=== PATIENT | male | born 1950 | race Caucasian/White ===

== ENCOUNTER 2018-08-14 06:59 | Day surgery (SDC) | payer BC, MEDICARE ==
[~2018-08-14 06:59] MED LIST: CEFAZOLIN IVPB ONE; CELECOXIB 100 MG CAPSULE PO ONE; FAMOTIDINE 20MG TABLET PO ONE; MECLIZINE 25 MG TABLET PO ONE; METOCLOPRAMIDE 10 MG TABLET PO ONE; VANCOMYCIN HCL 1,000 MG in DEXTROSE 5 % IN WATER 250 ML IVPB ONE
[2018-08-14] MEDS ORDERED: DEXAMETHASONE 4 MG/ML 1ML VIAL IVP ONE (07:00)
[2018-08-14] MEDS ORDERED: PROPOFOL 10 MG/ML VIAL IV ONE (07:00)
[2018-08-14] MEDS ORDERED: TRANEXAMIC ACID 1,000 MG/10 ML ML IV ONE (07:00)
[2018-08-14] MEDS ORDERED: ROPIVACAINE HCL (NAROPIN) /PF 5MG/ML 20ML VIAL IV ONE (07:00)
[2018-08-14] MEDS ORDERED: KETAMINE HCL 100MG/1ML VIAL INJ ONE (07:00)
[2018-08-14] MEDS ORDERED: MIDAZOLAM HCL 2MG/2ML VIAL IV ONE (07:00)
[2018-08-14] MEDS ORDERED: RINGERS SOLUTION,LACTATED 1,000 ML IV ONE (07:40)
[2018-08-14 07:50] LABS: ABO GROUP A; ANTIBODY SCREEN NEGATIVE (NEGATIVE); RH TYPE POSITIVE
[2018-08-14] MEDS ORDERED: BUPIVACAINE 0.5% W/EPI MPF 30 ML VIAL SQ ONE (09:46)
[2018-08-14] MEDS ORDERED: RINGERS SOLUTION,LACTATED 250 ML IV ONE (10:51)
[2018-08-14] MEDS ORDERED: ACETAMINOPHEN 325 MG TAB PO PRN (11:13)
[2018-08-14] MEDS ORDERED: AL HYDROX/MAG HYDROX 30ML UD PO PRN (11:13)
[2018-08-14] MEDS ORDERED: ACETAMINOPHEN W/ CODEINE 300MG/60MG TABLET PO PRN ×2 (11:13)
[2018-08-14] MEDS ORDERED: KETOROLAC 30 MG/ML VIAL IVP PRN ×2 (11:13)
[2018-08-14] MEDS ORDERED: NALOXONE 0.4 MG/1 ML VIAL IVP PRN (11:13)
[2018-08-14] MEDS ORDERED: HYDROCODONE/APAP 10/325 TABLET PO PRN (11:13)
[2018-08-14] MEDS ORDERED: MAGNESIUM HYDROXIDE 30 ML UDC PO PRN (11:13)
[2018-08-14] MEDS ORDERED: ONDANSETRON HCL IV 4 MG/2 ML VIAL IVP PRN (11:13)
[2018-08-14] MEDS ORDERED: ZOLPIDEM TARTRATE 5 MG TABLET PO PRN (11:13)
[2018-08-14] MEDS ORDERED: TRAMADOL HCL 50 MG TABLET PO PRN (11:13)
[2018-08-14] MEDS ORDERED: BISACODYL 10 MG SUPP RC PRN (11:13)
[2018-08-14] MEDS ORDERED: HYDROMORPHONE HCL 2 MG/ML VIAL IM PRN (11:13)
[2018-08-14] MEDS ORDERED: DIPHENHYDRAMINE HCL 25 MG CAPSULE PO PRN (11:13)
[2018-08-14] MEDS: POTASSIUM CHLORIDE/D5-0.9%NACL 20 MEQ/1,000 ML BAG IV SCH ×2 (12:08→20:57)
--- NOTE | 2018-08-14 13:00 | Operative Note ---
DATE OF SURGERY: 08/14/2018 PREOPERATIVE DIAGNOSIS: End-stage arthrosis of the left knee. POSTOPERATIVE DIAGNOSIS: End-stage arthrosis of the left knee. OPERATION: Cemented left total knee arthroplasty using [employer] II components with a size 7 Oxinium femur, a size 6 stem tibia baseplate, a 9 mm lipped tibial insert, and a 35 mm all plastic patella. STAFF SURGEON: Denzel Luo MD ANESTHESIA: Spinal. PREPARATION: Chloraprep. INDIVIDUAL CONSIDERATIONS: None. PROCEDURE: The patient was taken to the operating room, placed supine on the operating room table. He had a successful induction of a spinal anesthetic. The left lower extremity was prepped and draped in the usual fashion. The limb was elevated and tourniquet was inflated to 250 mmHg. The patient had a midline approach to the knee. Sharp dissection carried down through skin and subcutaneous tissue. Small veins were coagulated with a Bovie. A medial arthrotomy was performed. The patella was everted and the knee was flexed. The patient had exposed bone at all 3 compartments with large osteophytes. ACL was sacrificed and provisional anterior meniscectomies were performed. The capsule was released from the medial proximal tibia. The initial femoral pilot plant technician hole was then made freehand. The intramedullary femoral cutting jig was placed. It was cut in 7.0 degrees of valgus and adjusted for rotation and secured with pins for a 10 mm resection. The initial transverse cut was then made. The skin guide was then placed in the anterior and posterior pilot plant technician holes. It was found that a size 7 would be appropriate. The anterior and posterior cuts followed by chamfer cuts were made. Osteophytes removed, and a size 7 trial was placed and found to fit well. The tibia was brought forward, and the remainder of the meniscal remnants removed with a Bovie. The extraarticular tibial cutting jig was placed. It was cut in neutral with a 3-degree AP slope. It was set for a 9 mm resection keyed off the high lateral side and secured with pins. When cutting the tibia, care was taken to preserve the PCL insertion on the tibia. Large osteophytes were removed, and I could fit a size 6. It was adjusted for rotation and secured with pins. With a 9 mm trial and femoral trial, there was excellent motion and stability, ligamentous balance, rotation alignment, patellofemoral tracking were normal. No lateral release was required. Femoral pilot plant technician holes were impacted. Tri-flange tibial stamp was impacted, and these trial components were removed. The patient had a thick patella and roughly 9 mm of bone was removed freehand. I was easily able to fit a 35 patella. The 3 pilot plant technician holes were drilled. The knee was then thoroughly irrigated out with pulsatile Betadine and saline to remove any visual or palpable debris. The tourniquet was let down briefly to get bleeders posteriorly and then placed back up again. Again thorough irrigation. Bony surfaces were then dried. A size 6 stem tibia baseplate was cemented into place followed by impaction of the 9 mm lipped highly crosslinked tibial insert followed by cementing in the size 7 Oxinium femur followed by cementing in the 35 mm patella. The implant surfaces were compressed, excess cement was removed. After the cement had set, there was excellent motion and stability, ligamentous balance, rotation alignment, and patellofemoral tracking were normal. No lateral release was required. Tourniquet was let down. Hemostasis was obtained with a Bovie. The capsule, periosteum, and subcu were infiltrated with 30 mL of 0.5% Marcaine with epinephrine. The capsule was then closed with a running #2 quill, subcu was closed in layers with running 0 quill, skin was closed with bar. The patient did receive 1 g of tranexamic acid preoperatively. Then 1 g of tranexamic acid was mixed with 30 mL of saline and injected into the knee through a sterile 18-gauge needle, and a sterile bulky compressive dressing was applied. The patient tolerated the procedure well. Needle and sponge counts were correct. Estimated blood loss was minimal, and he was taken back to recovery in good condition. There were no complications. SARAH
[2018-08-14] MEDS: HYDROCODONE/APAP 10/325 TABLET PO PRN ×3 (13:11→20:56)
[2018-08-14] MEDS ORDERED: PNEUM 23-VAL ADULT IM ONE (13:22)
--- NOTE | 2018-08-14 15:18 | Rehab Evaluation ---
Patient Information - Patient Information Diagnosis: L knee OA Ordered Treatment: PT Evaluate and Treat Status: Initial Evaluation Surgery: Yes (L TKA) Date of Surgery: 08/14/18 Past Medical/Surgical Hx: PAST MEDICAL/SURGICAL HISTORY Past Surgical History RIGHT KNEE SCOPES SKIN GRAFT RIGHT SIDE CHEST LEFT LITTLE FINGER AMPUTATION CSCOPES PMH - Respiratory Hx Respiratory Disorders No PMH - Cardiovascular Hx Cardiovascular Disorders Yes Hx Edema Yes: OCCASSIONALLY Hx Hypertension Yes: GOOD CONTROL ON MEDS Hx Heart Murmur Yes: A KID Exercise Tolerance Good PMH - Neuro Hx Neurological Disorders No PMH - GI Hx Gastrointestinal Disorders Yes PMH - Hx Genitourinary Disorders No PMH - Endocrine Hx Endocrine Disorders Yes Hx Diabetes Yes: DX'D 10 YRS AGO Hx of NIDDM Yes: ON METFORMIN Comment: BLOOD SUGARS 150-160 A1C 7.2 PMH - Musculoskeletal Hx Musculoskeletal Disorders Yes Hx Arthritis Yes: KNEES PMH - Psych Hx Psychiatric Problems No PMH - Hematology/Oncology Hx Hematology/Oncology No Disorders Premorbid Status: Detail (The patient was independent with all mobility prior to surgery.) Social History: Detail (The harmonyn lives with spouse in mobile home with 2 steps at the enterance and 2 handrails. The bathroom is equipped with a tub/ shower combination, standard height toilet and no grab bars. The patient has a shower bench and walker with swivel wheels.) Precautions: [place], Fall, Other (WBAT on the L LE.) - Time With Patient Total Time Spent With Patient (Min): 30 Treatment Procedures: Detail (Initial Evaluation, gait training) Subjective Information - Subjective Information Per Patient (The patient had no complaints of pain.) Objective Data - Mental Status Patient Orientation: Oriented x3 - Visual Perception Appears within normal limits for therapeutic activities - ROM Not within normal limits (The patient's L LE knee AROM was limited s/p surgery. All other AROM was WNL.) - Strength/Tone Not within normal limits (The patient's L LE strength was functional ie: patient was able to complete a SLR. The patient's R LE strength was functional.) - Bed Mobility Independent (The patient was independent with supine to and from sit transfer.) - Transfers Independent (The patient was independent with sit to and from stand transfer.) - Balance Balance Sitting: Good Balance Standing: Good - Gait Detail (The patient ambulated with front wheeled walker a distance of 140 feet x 1 WBAT on the L LE with assist of 1 to handle equipment only.) Therapy Assessment - Therapy Assessment Detail (The patient was independent with bed mobility, transfers and ambulation. Feel the patient will progress well with mobility.) Problem List - Problem List Physical Therapy Problem List: Detail (1) Decreased L knee AROM and strenght as to be expected following surgery) Goals - Goals Physical Therapy Goals: 1) The patient will be independent with TKA HEP. 2) The patient will ambulate on stairs with supervision for safety using proper technique. Prognosis - Prognosis Good Plan - Plan Physical Therapy Plan: PT 1-2 sessions for gait training on stairs and instruction in HEP.
--- NOTE | 2018-08-14 15:18 | Rehab Evaluation ---
Patient Information - Patient Information Diagnosis: osteoarthritis L knee Ordered Treatment: OT Evaluate and Treat Status: Initial Evaluation Surgery: Yes (L TKA) Date of Surgery: 08/14/18 Past Medical/Surgical Hx: PAST MEDICAL/SURGICAL HISTORY Past Surgical History RIGHT KNEE SCOPES SKIN GRAFT RIGHT SIDE CHEST LEFT LITTLE FINGER AMPUTATION CSCOPES PMH - Respiratory Hx Respiratory Disorders No PMH - Cardiovascular Hx Cardiovascular Disorders Yes Hx Edema Yes: OCCASSIONALLY Hx Hypertension Yes: GOOD CONTROL ON MEDS Hx Heart Murmur Yes: A KID Exercise Tolerance Good PMH - Neuro Hx Neurological Disorders No PMH - GI Hx Gastrointestinal Disorders Yes PMH - Hx Genitourinary Disorders No PMH - Endocrine Hx Endocrine Disorders Yes Hx Diabetes Yes: DX'D 10 YRS AGO Hx of NIDDM Yes: ON METFORMIN Comment: BLOOD SUGARS 150-160 A1C 7.2 PMH - Musculoskeletal Hx Musculoskeletal Disorders Yes Hx Arthritis Yes: KNEES PMH - Psych Hx Psychiatric Problems No PMH - Hematology/Oncology Hx Hematology/Oncology No Disorders Premorbid Status: Detail (Pt is a 68 y.o. male who was indep. all I/ADLs prior to admit, driving and working. He does have a sock aide which he uses daily. He lives with his in a mobile home with 2 THEO and bilat HR. There is a tub/ shower combination with a shower chair in the bathroom. He has a FWW.) Precautions: [place], Fall, Other (WBAT L LE) - Time With Patient Total Time Spent With Patient (Min): 47 (1 eval) Treatment Procedures: Detail (OT eval: low complexity) Subjective Information - Subjective Information Per Patient (Pt agreeable to OT eval. Spouse present.) Objective Data - Pain Pain Present: No - Mental Status Patient Orientation: Oriented x3 - Visual Perception Appears within normal limits for therapeutic activities - ROM Within normal limits - Strength/Tone Within normal limits - Coordination Appears within normal limits for therapeutic activities - Bed Mobility Independent (supine > EOB) - Transfers Independent (SBA with sit >< stand from low surfaces with FWW.) - Balance Balance Sitting: Good Balance Standing: Good - Sensation Intact - Gait Detail (Functional mobility within bedroom with FWW and supervision.) - ADL's/IADL's Detail (OT educ. Pt on adaptive tech. for LB dressing, Pt demos mod. indep. to don/doff underwear, pants, shoes, able to doff socks and reports using a sock aide daily at baseline. OT educ. Pt on mod. techs. for kitchen and bathroom safety at home, Pt verbalizes understanding.) Therapy Assessment - Therapy Assessment Detail (Pt demos safety and mod. indep. with LB dressing, verbalizes safe tech. for safety with home tasks.) Problem List - Problem List Occupational Therapy Problem List: Detail (No inpatient OT needs identified.) Goals - Goals Occupational Therapy Goals: No further OT inpatient needs/goals identified. DC inpatient OT services. Prognosis - Prognosis Good Plan - Plan Occupational Therapy Plan: DC inpatient OT services. Rec. DC home with spouse assist as needed upon medical stability.
[2018-08-14] MEDS: CEFAZOLIN 1 Gram 1 GM/50 ML BAG IVPB SCH ×2 (17:03→17:39)
[2018-08-14] MEDS: DOCUSATE SODIUM 100 MG CAPSULE PO SCH (21:21)
[2018-08-14] MEDS: METFORMIN 500 MG TABLET PO SCH (21:21)
[2018-08-15] MEDS: CEFAZOLIN 1 Gram 1 GM/50 ML BAG IVPB SCH ×4 (01:13→10:30)
[2018-08-15] MEDS: POTASSIUM CHLORIDE/D5-0.9%NACL 20 MEQ/1,000 ML BAG IV SCH (06:12)
[2018-08-15 06:38] LABS: HEMATOCRIT 39.5 % (42.0-52.0); HEMOGLOBIN 12.9 gm/dl (14.0-18.0)
[2018-08-15 06:45] LABS: BLOOD UREA NITROGEN 14 mg/dL (8-23); CREATININE 0.8 mg/dL (0.7-1.2); EST GLOMERULAR FILTRATION RATE > 60 mL/min; GLUCOSE,RANDOM 170 mg/dL (74-109)
[2018-08-15] MEDS: HYDROCODONE/APAP 10/325 TABLET PO PRN (07:01)
[2018-08-15] MEDS ORDERED: METOPROLOL SUCC 50 MG TABLET PO SCH (10:00)
[2018-08-15] MEDS ORDERED: LISINOPRIL 20 MG TABLET PO SCH (10:00)
[2018-08-15] MEDS ORDERED: POTASSIUM CHLORIDE 20 MEQ TABLET PO SCH (10:00)
[2018-08-15] MEDS ORDERED: AMLODIPINE BESYLATE 5MG TAB PO SCH (10:00)
[2018-08-15] MEDS ORDERED: RIVAROXABAN 10 MG TABLET PO SCH (10:00)
[2018-08-15] MEDS ORDERED: FERROUS SULFATE 325 MG TAB PO SCH (10:00)
[2018-08-15] MEDS ORDERED: CEFAZOLIN 1G VIAL IVP ONE (10:00)
[2018-08-15] MEDS ORDERED: FUROSEMIDE 40 MG TABLET PO SCH (10:00)
[2018-08-15] MEDS ORDERED: ATORVASTATIN 20 MG TABLET PO SCH (10:00)
[2018-08-15] MEDS ORDERED: ASPIRIN 81 MG TABEC PO SCH (10:00)
[2018-08-15] MEDS: METFORMIN 500 MG TABLET PO SCH (10:29)
[2018-08-15] MEDS: DOCUSATE SODIUM 100 MG CAPSULE PO SCH (10:29)
--- NOTE | 2018-08-15 11:15 | Physical Therapy Tx Note ---
Physical Therapy Tx Note - Treatment Note Tolerated: Good Total Time Spent With Patient: 20 Physical Therapy Tx Note: Detail (Patient was seated in chair upon SPRING TIER arrival. Patient states feeling good today. Patient transferred sit to and from stand independently. Patient donned shoes with minimal assistance from . Patient ambulated 346 feet with wheeled walker SBA x1. Patient ascended and descended 3 steps CGA x1. Patient transferred sit to supine independently. Patient scooted up in bed independently. Patient performed the following exercises x10 reps each: ankle pumps, quad sets, glut squeezes, SLR, heel slides , and hamstring sets. Patient tolerated treatment well. Patient was left reclined in bed with call light within reach. Patient discharged from inpatient PT at this time, due to all goals met.) Physical Therapy Problem List: Detail (1) Decreased L knee AROM and strenght as to be expected following surgery) Physical Therapy Goals: 1) The patient will be independent with TKA HEP. 2) The patient will ambulate on stairs with supervision for safety using proper technique. Prognosis: Good Physical Therapy Plan: Patient discharged from inpatient PT at this time, as all goals are met.
== END 2018-08-15 11:30 | disposition home health service (06) ==
LOC: SUR 06:59 → MEDSURG 11:32 → SUR 08-15 11:30
PROVIDERS: ATTEND Orthopaedic Surgery
DX: M17.11 Unilateral primary osteoarthritis, right knee (principal); I10 Essential (primary) hypertension; E78.00 Pure hypercholesterolemia, unspecified; R60.9 Edema, unspecified; E11.9 Type 2 diabetes mellitus without complications
CPT/HCPCS: 36416; 80048; 82948; 85014; 85018; 86850; 86900; 86901; 90732; 97530; C1776; J0690; J3480; J3490; J7060; J7120

== ENCOUNTER 2018-12-25 08:47 | Day surgery (SDC) | payer BC, MEDICARE ==
[~2018-12-25 08:47] MED LIST changes: +CEFAZOLIN 2 Gram 2 GM/50 ML BAG IVPB ONE; -CEFAZOLIN IVPB ONE; +VANCOMYCIN 1GM/200ML PREMIX 1 GM/200 ML PIGGYBACK IVPB ONE; -VANCOMYCIN HCL 1,000 MG in DEXTROSE 5 % IN WATER 250 ML IVPB ONE
[2018-12-25] MEDS ORDERED: LIDOCAINE 2% MDV (20MG/ML) 20ML VIAL IV ONE (08:48)
[2018-12-25] MEDS ORDERED: PROPOFOL 10 MG/ML VIAL IV ONE (08:48)
[2018-12-25] MEDS ORDERED: DEXAMETHASONE 4 MG/ML 1ML VIAL IVP ONE (08:48)
[2018-12-25] MEDS ORDERED: MIDAZOLAM HCL 2MG/2ML VIAL IV ONE (08:48)
[2018-12-25] MEDS ORDERED: RINGERS SOLUTION,LACTATED 1,000 ML IV ONE ×2 (09:39→11:32)
[2018-12-25] MEDS ORDERED: TRANEXAMIC ACID 1,000 MG/10 ML ML IV ONE (11:31)
[2018-12-25] MEDS ORDERED: BUPIVACAINE 0.5% W/EPI MPF 30 ML VIAL SQ ONE (11:31)
[2018-12-25] MEDS ORDERED: TRANEXAMIC ACID 1,000 MG/10 ML ML IU ONE (11:31)
[2018-12-25] MEDS ORDERED: BISACODYL 10 MG SUPP RC PRN (12:41)
[2018-12-25] MEDS ORDERED: ONDANSETRON 4 MG ODT TABLET SL PRN (12:41)
[2018-12-25] MEDS ORDERED: NALOXONE 0.4 MG/1 ML VIAL IVP PRN (12:41)
[2018-12-25] MEDS ORDERED: ACETAMINOPHEN 325 MG TAB PO PRN (12:41)
[2018-12-25] MEDS ORDERED: ACETAMINOPHEN W/ CODEINE 300MG/60MG TABLET PO PRN ×2 (12:41)
[2018-12-25] MEDS ORDERED: MAGNESIUM HYDROXIDE 30 ML UDC PO PRN (12:41)
[2018-12-25] MEDS ORDERED: TRAMADOL HCL 50 MG TABLET PO PRN (12:41)
[2018-12-25] MEDS ORDERED: AL HYDROX/MAG HYDROX 30ML UD PO PRN (12:41)
[2018-12-25] MEDS ORDERED: KETOROLAC 30 MG/ML VIAL IVP PRN (12:41)
[2018-12-25] MEDS ORDERED: DIPHENHYDRAMINE HCL 25 MG CAPSULE PO PRN (12:41)
[2018-12-25] MEDS ORDERED: OXYCODONE HCL 5 MG TABLET PO PRN (12:41)
[2018-12-25] MEDS ORDERED: HYDROCODONE/APAP 10/325 TABLET PO PRN (12:41)
[2018-12-25] MEDS: HYDROCODONE/APAP 10/325 TABLET PO PRN (13:50)
[2018-12-25 13:53] LABS: ABSOLUTE NEUTROPHIL COUNT 5.77; BASO % 0.4 % (0-6); EOS % 2.1 % (0-6); GRAN % 63.6 % (47-80); HEMATOCRIT 38.5 % (42.0-52.0); HEMOGLOBIN 12.1 gm/dl (14.0-18.0); LYMPH % 24.8 % (16-45); MEAN CELL VOLUME 81.9 fl (81-97); MEAN CORPUSCULAR HEMOGLOBIN 25.7 pg (27-33); MEAN CORPUSCULAR HGB CONC 31.4 g/dl (32-36); MEAN PLATELET VOLUME 8.7 fl (7.4-10.4); MONO % 9.1 % (0-9); PLATELET COUNT 238 K/uL (130-400); RED CELL DISTRIBUTION WIDTH 15.4 % (11.5-14.5); WHITE BLOOD COUNT W/O DIFF 9.1 K/uL (4.2-12.2)
[2018-12-25] MEDS ORDERED: HYDROMORPHONE HCL 2 MG/ML VIAL IM PRN (14:04)
[2018-12-25] MEDS ORDERED: ONDANSETRON HCL IV 4 MG/2 ML VIAL IVP PRN (14:04)
[2018-12-25] MEDS ORDERED: ZOLPIDEM TARTRATE 5 MG TABLET PO PRN (14:04)
[2018-12-25] MEDS: POTASSIUM CHLORIDE/D5-0.9%NACL 20 MEQ/1,000 ML BAG IV SCH ×2 (14:21→22:45)
--- NOTE | 2018-12-25 15:58 | Rehab Evaluation ---
Patient Information - Patient Information Diagnosis: R knee DJD Ordered Treatment: PT Evaluate and Treat Status: Initial Evaluation Surgery: Yes (R TKA) Date of Surgery: 12/25/18 Past Medical/Surgical Hx: PAST MEDICAL/SURGICAL HISTORY Past Surgical History LTKA 08-14-18 RIGHT KNEE SCOPES SKIN GRAFT RIGHT SIDE CHEST LEFT LITTLE FINGER AMPUTATION CSCOPES PMH - Respiratory Hx Respiratory Disorders No PMH - Cardiovascular Hx Cardiovascular Disorders Yes Hx Edema Yes: OCCASSIONALLY Hx Hypertension Yes: GOOD CONTROL ON MEDS Hx Heart Murmur Yes: A KID Exercise Tolerance Fair PMH - Neuro Hx Neurological Disorders No PMH - GI Hx Gastrointestinal Disorders Yes PMH - Hx Genitourinary Disorders No PMH - Endocrine Hx Endocrine Disorders Yes Hx Diabetes Yes: DX'D 10 YRS AGO Hx of NIDDM Yes: ON METFORMIN Comment: BLOOD SUGARS 150-160 A1C 7.2 PMH - Musculoskeletal Hx Musculoskeletal Disorders Yes Hx Arthritis Yes: KNEES PMH - Psych Hx Psychiatric Problems No PMH - Hematology/Oncology Hx Hematology/Oncology No Disorders Premorbid Status: Detail (The patient was independent with all mobility prior to surgery. Patient reported he did have difficulty with stairclimbing at times.) Social History: Detail (The patient lives with spouse in a mobile home with 3 steps at the enterance and two railings . The bathroom is equipped with: a tub/shower combination,whoer bench and elevated toilet seat. There are grab bars in the tub but not but the toilet.) Precautions: [place], Fall, Other (WBAT on the R LE) - Time With Patient Total Time Spent With Patient (Min): 30 Treatment Procedures: Detail (Initial Evaluation low complexity) Subjective Information - Subjective Information Per Patient (The patient has no complaints of pain.) Objective Data - Mental Status Patient Orientation: Oriented x3 - ROM Not within normal limits (The patient has limited R knee AROM as to be expected s/p surgery. All other LE AROM is WNL.) - Strength/Tone Not within normal limits (The patient's R LE strength was not tested s/p surgery however the strength is functional ie: the patient was able to lift R LE in and out of bed. The patient's L LE strength was WNL.) - Bed Mobility Independent (The patient is independent with supine to and from sit transfer and scooting up in bed.) - Transfers Independent (The patient is independent with sit to and from stand transfer.) - Balance Balance Sitting: Good Balance Standing: Good - Gait Detail (The patient ambulated with front wheeled walker a distance of 120 feet WBAT on the R LE with assist of 1 to handle IV.) Therapy Assessment - Therapy Assessment Detail (The patient was independent with bed mobility, transfers and ambulation. Feel the patient will progress well with mobility.) Problem List - Problem List Physical Therapy Problem List: Detail (1) Decreased R knee AROM s/p surgery. 2) Decreased R LE strength.) Goals - Goals Physical Therapy Goals: 1) The patient will be independent with TKA HEP. 2) The patient will ambulate on stairs using proper technique with supervision for safety. Prognosis - Prognosis Good Plan - Plan Physical Therapy Plan: PT 1-2 sessions for gait training on stairs and instruction in HEP.
[2018-12-25] MEDS ORDERED: CEFTRIAXONE 1GM/50ML BAG 1 GM/50 ML BAG IVPB SCH (17:00)
[2018-12-25] MEDS: CEFAZOLIN 2 Gram 2 GM/50 ML BAG IVPB SCH (17:11)
[2018-12-25 18:04] LABS: ABO GROUP A; ANTIBODY SCREEN NEGATIVE (NEGATIVE); RH TYPE POSITIVE
[2018-12-25] MEDS: METFORMIN 500 MG TABLET PO SCH (21:24)
[2018-12-25] MEDS: DOCUSATE SODIUM 100 MG CAPSULE PO SCH (21:26)
[2018-12-26] MEDS: CEFAZOLIN 2 Gram 2 GM/50 ML BAG IVPB SCH ×2 (00:41→09:57)
[2018-12-26] MEDS: HYDROCODONE/APAP 10/325 TABLET PO PRN ×3 (01:13→13:29)
[2018-12-26 06:25] LABS: HEMATOCRIT 39.2 % (42.0-52.0); HEMOGLOBIN 12.4 gm/dl (14.0-18.0)
[2018-12-26 06:38] LABS: BLOOD UREA NITROGEN 16 mg/dL (8-23); CREATININE 0.9 mg/dL (0.7-1.2); EST GLOMERULAR FILTRATION RATE > 60 mL/min; GLUCOSE,RANDOM 151 mg/dL (74-109)
[2018-12-26] MEDS: POTASSIUM CHLORIDE/D5-0.9%NACL 20 MEQ/1,000 ML BAG IV SCH (07:27)
--- NOTE | 2018-12-26 09:48 | Rehab Evaluation ---
Patient Information - Patient Information Diagnosis: R knee DJD Ordered Treatment: OT Evaluate and Treat Status: Initial Evaluation Surgery: Yes (R TKA) Date of Surgery: 12/25/18 Past Medical/Surgical Hx: PAST MEDICAL/SURGICAL HISTORY Past Surgical History LTKA 08-14-18 RIGHT KNEE SCOPES SKIN GRAFT RIGHT SIDE CHEST LEFT LITTLE FINGER AMPUTATION CSCOPES PMH - Respiratory Hx Respiratory Disorders No PMH - Cardiovascular Hx Cardiovascular Disorders Yes Hx Edema Yes: OCCASSIONALLY Hx Hypertension Yes: GOOD CONTROL ON MEDS Hx Heart Murmur Yes: A KID Exercise Tolerance Fair PMH - Neuro Hx Neurological Disorders No PMH - GI Hx Gastrointestinal Disorders Yes PMH - Hx Genitourinary Disorders No PMH - Endocrine Hx Endocrine Disorders Yes Hx Diabetes Yes: DX'D 10 YRS AGO Hx of NIDDM Yes: ON METFORMIN Comment: BLOOD SUGARS 150-160 A1C 7.2 PMH - Musculoskeletal Hx Musculoskeletal Disorders Yes Hx Arthritis Yes: KNEES PMH - Psych Hx Psychiatric Problems No PMH - Hematology/Oncology Hx Hematology/Oncology No Disorders Premorbid Status: Detail (The patient was independent with all mobility prior to surgery. Patient reported he did have difficulty with stairclimbing at times. Pt's spouse is responsible for indoor IADLs and pt is responsible for yard work.) Social History: Detail (The patient lives with spouse in a mobile home with 3 steps at the entrance and two railings . The bathroom is equipped with: a tub/shower combination, shower bench and elevated toilet seat. There are grab bars in the tub but not by the toilet. He has a 2 wheeled walker, cane, sock aid and long shoe horn.) Precautions: [place], Fall, Other (WBAT on the R LE) - Time With Patient Total Time Spent With Patient (Min): 35 Treatment Procedures: Detail (OT eval low complexity) Subjective Information - Subjective Information Per Patient Objective Data - Pain Pain Present: Yes (05/03) - Mental Status Patient Orientation: Oriented x3 - Visual Perception Appears within normal limits for therapeutic activities - ROM Within normal limits (Silvino UE AROM WNL) - Strength/Tone Within normal limits (Silvino UE strength WNL) - Coordination Appears within normal limits for therapeutic activities - Transfers Independent (Ind with sit to stand from EOB and chair heights.) - Balance Balance Sitting: Good Balance Standing: Good - Sensation Intact - Gait Detail (Pt ambulating in room with 2 wheeled walker and SBA) - ADL's/IADL's Detail (Pt educated and able to demonstrate learning of modified LE dressing techniques with minimal assist from who is planning to help at home. He was able to demonstrate donning arianne sock with assist, doff briefs, don boxer shorts, shorts and slip on shoes with min assist. Reviewed kitchen and shower safety and modifications, pt verbalized understanding.) Therapy Assessment - Therapy Assessment Detail (Pt and are Ind with modified LE dressing techniques.) Problem List - Problem List Physical Therapy Problem List: Detail (1) Decreased R knee AROM s/p surgery. 2) Decreased R LE strength.) Occupational Therapy Problem List: Detail (No current IP OT problems identified.) Goals - Goals Physical Therapy Goals: 1) The patient will be independent with TKA HEP. 2) The patient will ambulate on stairs using proper technique with supervision for safety. Occupational Therapy Goals: No current IP OT goals identified. Prognosis - Prognosis Good Plan - Plan Physical Therapy Plan: PT 1-2 sessions for gait training on stairs and instruction in HEP. Occupational Therapy Plan: No further IP OT recommended. Thank you for this referral.
[2018-12-26] MEDS: DOCUSATE SODIUM 100 MG CAPSULE PO SCH (09:57)
[2018-12-26] MEDS: METFORMIN 500 MG TABLET PO SCH (09:59)
[2018-12-26] MEDS ORDERED: FERROUS SULFATE 325 MG TAB PO SCH (10:00)
[2018-12-26] MEDS ORDERED: METOPROLOL SUCC 50 MG TABLET PO SCH (10:00)
[2018-12-26] MEDS ORDERED: POTASSIUM CHLORIDE 10 MEQ TAB PO SCH (10:00)
[2018-12-26] MEDS ORDERED: FUROSEMIDE 40 MG TABLET PO SCH (10:00)
[2018-12-26] MEDS ORDERED: RIVAROXABAN 10 MG TABLET PO SCH (10:00)
[2018-12-26] MEDS ORDERED: ASPIRIN 81 MG TABEC PO SCH (10:00)
[2018-12-26] MEDS ORDERED: ATORVASTATIN 20 MG TABLET PO SCH (10:00)
[2018-12-26] MEDS ORDERED: AMLODIPINE BESYLATE 5MG TAB PO SCH (10:00)
[2018-12-26] MEDS ORDERED: LISINOPRIL 20 MG TABLET PO SCH (10:00)
--- NOTE | 2018-12-26 10:28 | Physical Therapy Tx Note ---
Physical Therapy Tx Note - Treatment Note Tolerated: Good Total Time Spent With Patient: 25 Physical Therapy Tx Note: Detail (The patient was up in chair when PT arrived. The patient ambulated with front wheeled walker a distance of 100 feet x 1 independently WBAT on the R LE. The patient ambulated on 3 steps with folded walker and one railing with proper technique with supervision for safety. The patient completed TKA HEP including: seated and supine heel slides, quad sets, gluteal sets, hamstring sets, SLR and ankle pumps. The patient has met all inpatient PT goals and is discharged from inpatient PT.) Physical Therapy Problem List: Detail (1) Decreased R knee AROM s/p surgery. 2) Decreased R LE strength.) Physical Therapy Goals: 1) The patient will be independent with TKA HEP. (Goal Met). 2) The patient will ambulate on stairs using proper technique with supervision for safety. (Goal Met) Physical Therapy Plan: The patient is discharged from inpatient PT and is to continue with Home PT.
--- NOTE | 2018-12-28 12:51 | Operative Note ---
DATE OF SURGERY: 12/25/2018 PREOPERATIVE DIAGNOSIS: End-stage arthrosis of the right knee. POSTOPERATIVE DIAGNOSIS: End-stage arthrosis of the right knee. OPERATION: Cemented right total knee arthroplasty using Aquino and Nephew Mercedes II components with a size 7 Oxinium femur, a size 6 stemmed tibia baseplate, a 9 mm lipped highly crosslinked tibial insert, and a 35 mm all-plastic patella. STAFF SURGEON: Denzel Luo MD ANESTHESIA: Spinal. PREPARATION: Chloraprep. INDIVIDUAL CONSIDERATIONS: None. PROCEDURE: The patient was taken to the operating room, placed supine on the operating room table. He had a successful induction of a spinal anesthetic. The right lower extremity was prepped and draped in the usual fashion. The limb was elevated and tourniquet was inflated to 300 mmHg. The patient had a midline approach to the knee. Sharp dissection carried down through skin and subcutaneous tissue. Small veins were coagulated with a Bovie. A medial arthrotomy was performed. The patella was everted and the knee was flexed. The patient had exposed bone in the medial and patellofemoral compartments with large osteophytes and bone loss. Fat pad was resected, ACL was sacrificed, and provisional anterior meniscectomies were performed. The capsule was released from the medial proximal tibia. The initial femoral airline pilot hole was then made freehand. The intramedullary femoral cutting jig was placed. It was cut in 7.0 degrees of valgus and adjusted for rotation and secured with pins for a 10 mm resection. The initial transverse cut was then made. The skin guide was then placed in the anterior and posterior airline pilot holes. It was found that a size 7 would be appropriate. The anterior and posterior cuts followed by chamfer cuts were made. Osteophytes removed, and a size 7 trial was found to fit well. The tibia was brought forward, and the remainder of the meniscal remnants removed with a Bovie. The extraarticular tibial cutting jig was placed. It was cut in neutral with a 3-degree AP slope. Care was taken to adjust for rotation and flexion using the extraarticular alignment guide and bony landmarks. It was set for a 9 mm resection keyed off the high lateral side and secured with pins. When cutting the tibia, care was taken to preserve the PCL insertion on the tibia. Large osteophytes were removed, and I could fit a size 6. It was adjusted for rotation and secured with pins. With a size 7 trial and the 9 mm lipped trial, there was excellent motion and stability, ligamentous balance, and rotation alignment were thought to be normal. Femoral airline pilot holes were impacted and tri-flange tibial stamp was impacted, and these trial components were removed. The patient had a thick patella and roughly 9 mm of bone was removed freehand. I was easily able to fit a 35 patella. The 3 airline pilot holes were drilled. The knee was then thoroughly irrigated out with pulsatile Betadine and saline to remove any visual or palpable debris. The tourniquet was let down briefly to get bleeders posteriorly and then placed back up again. Again thorough irrigation. A size 6 stemmed tibia baseplate was cemented into place followed by impaction of the 9 mm highly crosslinked tibial insert followed by cementing in the size 7 Oxinium femur followed by cementing in the 35 mm patella. The implant surfaces were compressed, excess cement was removed. After the cement had set, there was excellent motion and stability, ligamentous balance, rotation alignment, and patellofemoral tracking were normal. No lateral release was required. Tourniquet was let down. Hemostasis was obtained with a Bovie. Did have excellent hemostasis. I then infiltrated the capsule, periosteum, skin, and subcu with 30 mL of 0.5% Marcaine with epinephrine. The capsule was then closed with a running #2 quill, subcu was closed in layers with running 0 quill, skin was closed with bar. The patient did receive 1 g of tranexamic acid preoperatively. Then 1 g of tranexamic acid was mixed with 30 mL of saline and injected into the knee through a sterile 18-gauge needle, and a sterile bulky compressive EDE-type dressing was applied. The patient tolerated the procedure well. Needle and sponge counts were correct. Estimated blood loss was minimal, and he was taken back to recovery in good condition. There were no complications. SARAH
== END 2018-12-26 13:30 | disposition home health service (06) ==
LOC: SUR 08:47 → MEDSURG 13:14 → SUR 12-26 13:30
PROVIDERS: ATTEND Orthopaedic Surgery
DX: M17.11 Unilateral primary osteoarthritis, right knee (principal); I10 Essential (primary) hypertension; E78.00 Pure hypercholesterolemia, unspecified; R60.9 Edema, unspecified; E11.9 Type 2 diabetes mellitus without complications
CPT/HCPCS: 27447; 01402; 64447; 85025; 85018; 85014; 80048; 36416; 82948; 86900; 86901; 86850; J3490 ×3; J1170; J0690 ×2; J3370; 76942; J3480; J7120

== ENCOUNTER 2019-03-13 08:35 | Day surgery (SDC) | payer BC, MEDICARE, OTHER ==
[~2019-03-13 08:35] MED LIST changes: +ACETAMINOPHEN 1,000 MG/100 ML BTL IVPB ONE; +CEFAZOLIN 1 Gram 1 GM/50 ML BAG IVPB ONE; -CELECOXIB 100 MG CAPSULE PO ONE; -FAMOTIDINE 20MG TABLET PO ONE; -MECLIZINE 25 MG TABLET PO ONE; -METOCLOPRAMIDE 10 MG TABLET PO ONE; -VANCOMYCIN 1GM/200ML PREMIX 1 GM/200 ML PIGGYBACK IVPB ONE
[2019-03-13] MEDS ORDERED: PROPOFOL 10 MG/ML VIAL IV ONE (08:36)
[2019-03-13] MEDS ORDERED: MIDAZOLAM HCL 2MG/2ML VIAL IV ONE (08:36)
[2019-03-13] MEDS ORDERED: ROPIVACAINE HCL (NAROPIN) /PF 5MG/ML 20ML VIAL IV ONE (08:36)
[2019-03-13] MEDS ORDERED: LIDOCAINE 2% MDV (20MG/ML) 20ML VIAL IV ONE (08:36)
[2019-03-13] MEDS ORDERED: DEXAMETHASONE 4 MG/ML 1ML VIAL IVP ONE (08:36)
[2019-03-13] MEDS ORDERED: RINGERS SOLUTION,LACTATED 1,000 ML IV ONE ×2 (09:20→11:02)
[2019-03-13 09:49] LABS: ABSOLUTE NEUTROPHIL COUNT 6.65; BASO % 0.7 % (0-6); EOS % 2.5 % (0-6); GRAN % 64.8 % (47-80); HEMATOCRIT 43.1 % (42.0-52.0); HEMOGLOBIN 13.8 gm/dl (14.0-18.0); LYMPH % 23.1 % (16-45); MEAN CELL VOLUME 81.3 fl (81-97); MEAN PLATELET VOLUME 8.8 fl (7.4-10.4); MONO % 8.9 % (0-9); PLATELET COUNT 376 K/uL (130-400); RED CELL DISTRIBUTION WIDTH 15.5 % (11.5-14.5); WHITE BLOOD COUNT W/O DIFF 10.3 K/uL (4.2-12.2)
[2019-03-13 09:59] LABS: BLOOD UREA NITROGEN 17 mg/dL (8-23); CREATININE 0.9 mg/dL (0.7-1.2); EST GLOMERULAR FILTRATION RATE > 60 mL/min; GLUCOSE,RANDOM 162 mg/dL (74-109)
[2019-03-13] MEDS ORDERED: BUPIVACAINE 0.5% W/EPI MPF 30 ML VIAL SQ ONE (11:33)
--- NOTE | 2019-03-14 09:40 | Operative Note ---
DATE OF SURGERY: 03/13/2019 PREOPERATIVE DIAGNOSIS: Syndesmosis disruption of the right ankle. POSTOPERATIVE DIAGNOSIS: Syndesmosis disruption of the right ankle. OPERATION: 1. Open reduction and internal fixation of syndesmosis with Aquino and Nephew Invisiknot. 2. Interpretation of ankle x-rays during the procedure. STAFF SURGEON: Denzel Luo MD ANESTHESIA: Popliteal block with sedation. PREPARATION: Chloraprep. INDIVIDUAL CONSIDERATIONS: None. PROCEDURE: The patient was taken to the operating room and placed supine on the operating room table. He had a successful induction of a popliteal block. He was given IV sedation. His right leg was prepped and draped in the usual fashion. The patient had an incision directly over the syndesmosis of the fibula laterally. Total length was about 3 cm. Skin was infiltrated with 0.5% Marcaine with epinephrine prior. The drill for the Invisiknot was then placed through the lateral cortex of the fibula on a slight angle angling anteriorly across the syndesmosis and then palpable through the skin on the other side. A stab wound was made and the drill was pulled partially through. I placed a 2-hold plate over the drill and then placed the guide thread for the Invisiknot through the hold to drill and brought that through. I then seated the button on the medial side and then provisionally tied down the button over the 2-hole plate. In a similar fashion, a second Invisiknot was placed over the plate proximally giving 2 Invisiknots across the syndesmosis. This was all verified by fluoroscopy. With the foot in slight dorsiflexion, I went ahead and tightened down the sutures on the Invisiknot to secure the syndesmosis. The ankle was not totally stable. X- rays from the fluoroscopy verified anatomic reduction. After irrigation in the lateral wound, subcu was closed with 2-0 plus Vicryl and all skin wounds were closed with bar. A bulky compressive dressing and brace were applied. He was taken back to recovery in good condition. There were no complications. [facility]y
== END 2019-03-13 13:00 | disposition home or self-care (01) ==
LOC: SUR 08:35
PROVIDERS: ATTEND Orthopaedic Surgery
DX: S93.431A Sprain of tibiofibular ligament of right ankle, initial encounter (principal); I10 Essential (primary) hypertension; E78.00 Pure hypercholesterolemia, unspecified; R60.9 Edema, unspecified; E11.9 Type 2 diabetes mellitus without complications
CPT/HCPCS: 27829; 01480; 64447; 85025; 80048; C1713; J0690 ×2; J2795; 76942; J7120